=== PATIENT | male | born 1960 | race Caucasian/White ===

== ENCOUNTER 2019-05-18 06:07 | Emergency (ER) | payer SELFPAY ==
[~2019-05-18] VITALS: Ht 175 cm; Wt 75.0 kg
[2019-05-18 06:41] LABS: BILIRUBIN,URINE NEGATIVE (NEGATIVE); CLARITY,URINE CLEAR; COLOR,URINE YELLOW; GLUCOSE, URINE (UA) NEGATIVE (NEGATIVE); KETONES,URINE NEGATIVE (NEGATIVE); LEUKOCYTE ESTERASE ,URINE NEGATIVE (NEGATIVE); NITRITE,URINE NEGATIVE (NEGATIVE); PROTEIN,URINE NEGATIVE (NEGATIVE)
[2019-05-18 06:55] LABS: BACTERIA,URINE NEGATIVE /HPF
[2019-05-18] MEDS ORDERED: PRD20T PO (08:08)
--- NOTE | 2019-05-18 08:08 | ED Back Pain ---
General Chief Complaint: Abdominal/GI Problems Stated Complaint: PAIN OF RT SIDE Nursing Triage Note: Pt ambulates to RM 6 with c/o RLQ pain that radiates to right thigh x 1.5 wks. Pt states it's gotten worse during the night. Pt reports taking tylenol for pain and "helps a little but doesn't relieve". Pt states pain is worse when sitting up. Pt denies any N/V or bowel/urine changes. Nursing Sepsis Screen: No Definite Risk Source of Information: Patient Exam Limitations: No Limitations History of Present Illness Date Seen by Provider: May 18, 2019 Time Seen by Provider: 06:18 Initial Comments This 59-year-old gentleman presents to the emergency room with about 10 days of pain in the right lower back and right flank. It is worse today and radiates down the right thigh. It is better when standing. He took 4 Tylenol at 01:00. This did help some. This is a fairly new problem for him. He has not had issues with this pain in the past. He denies any bowel or bladder dysfunction. He does have stool frequency in the mornings after drinking coffee. He reports slipping off his truck and bouncing on the step off about 3 weeks ago which may have contributed to his present symptoms. He denies any urinary changes. He has no local provider. Allergies and Home Medications Home Medications Prednisone 20 Mg Tab, 20 MG PO DAILY Prescribed by: ELMER MCLEOD on 05/18/19 0808 Patient Home Medication List Home Medication List Reviewed: Yes Review of Systems Constitutional: no symptoms reported EENTM: no symptoms reported Respiratory: no symptoms reported Cardiovascular: no symptoms reported Gastrointestinal: see HPI Genitourinary: no symptoms reported Musculoskeletal: see HPI Skin: no symptoms reported Psychiatric/Neurological: No Symptoms Reported Past Sqxpifu-Fpyhhw-Sayfmh Hx Past Med/Social Hx: Reviewed Nursing Past Med/Soc Hx Patient Social History Alcohol Use: Rarely Uses Recreational Drug Use: No Smoking Status: Former Smoker Type Used: Cigarettes Former Smoker, Quit: May 29, 2015 2nd Hand Smoke Exposure: No Recent Foreign Travel: No Contact w/Someone Who Travel: No Recent Infectious Disease Expo: No Recent Hopitalizations: No Physical Abuse: No Sexual Abuse: No Mistreated: No Fear: No Seasonal Allergies Seasonal Allergies: No Past Medical History Surgeries: No Respiratory: No Cardiac: No Neurological: No Genitourinary: No Gastrointestinal: No Musculoskeletal: No Endocrine: No HEENT: No Cancer: No Psychosocial: No Integumentary: Yes (History of cat scratch disease) Blood Disorders: No Physical Exam Vital Signs Vital Signs - First Documented 05/18/19 06:12 Temp 36.5 Pulse 71 Resp 17 B/P (MAP) 133/93 (106) Pulse Ox 98 O2 Delivery Room Air Capillary Refill : Less Than 3 Seconds Height, Weight, BMI Height: '" Weight: lbs. oz. kg; 24.00 BMI Method: General Appearance: No Apparent Distress, WD/WN HEENT: Normal ENT Inspection Neck: Normal Inspection Cardiovascular: Regular Rate, Rhythm, No Edema, No Murmur Respiratory: Lungs Clear, Normal Breath Sounds, No Accessory Muscle Use, No Respiratory Distress Gastrointestinal: Normal Bowel Sounds, Soft, Tenderness (Subtle tenderness in the right mid abdomen) Back: Normal Inspection, Other (Tenderness in the right lower back/flank) Extremity: Normal Inspection, Non Tender, No Pedal Edema, Other (No pain with flexion or rotation of the right hip) Neurologic/Psychiatric: Alert, Oriented x3, No Motor/Sensory Deficits, Normal 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, 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 Norm as Tested Skin: Normal Color, Warm/Dry Progress/Results/Core Measures Results/Orders Lab Results Laboratory Tests Test 05/18/19 06:26 Range/Units Urine Color YELLOW Urine Clarity CLEAR Urine pH 6.0 5-9 Urine Specific [place] 1.015 L 1.016-1.022 Urine Protein NEGATIVE NEGATIVE Urine Glucose (UA) NEGATIVE NEGATIVE Urine Ketones NEGATIVE NEGATIVE Urine Nitrite NEGATIVE NEGATIVE Urine Bilirubin NEGATIVE NEGATIVE Urine Urobilinogen 0.2 < = 1.0 MG/DL Urine Leukocyte Esterase NEGATIVE NEGATIVE Urine RBC (Auto) NEGATIVE NEGATIVE Urine RBC NONE /HPF Urine WBC NONE /HPF Urine Squamous Epithelial Cells NONE /HPF Urine Crystals NONE /LPF Urine Bacteria NEGATIVE /HPF Urine Casts NONE /LPF Urine Mucus NEGATIVE /LPF Urine Culture Indicated NO My Orders Orders - ELMER COE MD Ua Culture If Indicated (05/18/19 06:15) Vital Signs/I&O 05/18/19 05/18/19 06:12 08:15 Temp 36.5 36.5 Pulse 71 75 Resp 17 17 B/P (MAP) 133/93 (106) 146/86 (106) Pulse Ox 98 94 O2 Delivery Room Air Room Air Blood Pressure Mean: 106 POS Progress Progress Note : Progress Note Urinalysis was unremarkable. There is no evidence of blood to suggest ureteral stone. Conservative management with NSAIDs and steroids was advised with progressive workup in the outpatient setting if symptoms do not resolve. Departure Impression Primary Impression: Low back pain Qualified Codes: M54.41 - Lumbago with sciatica, right side Disposition: 01 HOME, SELF-CARE Condition: Stable Departure-Patient Inst. Decision time for Depature: 08:04 Referrals: NO,LOCAL PHYSICIAN (PCP/Family) Primary Care Physician Patient Instructions: Low Back Pain in Adults, Radiculopathy Add. Discharge Instructions: For primary pain control you may use a combination of Tylenol and ibuprofen in the following doses: Ibuprofen up to 600 mg every 6 hours as needed for pain. Take with food or milk to avoid stomach irritation. Tylenol (acetaminophen) up to 1000 mg every 6 hours as needed for pain. Take your prednisone doses early in the day with food or milk. This will avoid sleep disturbance and stomach irritation. Return to care if you have worsening symptoms, especially if you develop weakness in the legs, difficulty controlling bowels or bladder, severe constipation or inability to urinate, or numbness in the groin. Please establish with a primary care provider soon as possible. See the primary care provider if symptoms do not completely resolved with above treatments. All discharge instructions reviewed with patient and/or family. Voiced understanding. Scripts Prednisone (Prednisone) 20 Mg Tab 20 MG PO DAILY, #4 TAB 0 Refills Prov: ELMER COE MD 05/18/19 ELMER COE MD May 18, 2019 08:08 POS
[2019-05-18 08:15] VITALS: BP 146/86
== END 2019-05-18 08:15 | disposition home or self-care (01) ==
LOC: ER 06:12
DX: M54.5 Low back pain (principal); Z87.891 Personal history of nicotine dependence
CPT/HCPCS: 81000; 99282